=== PATIENT | male | born 1985 | race Caucasian/White ===

== ENCOUNTER → 2018-01-13 12:18 | Outpatient (CLI) | payer OTHER, SELFPAY ==
[2018-01-13 12:40] LABS: Microscopic, Urine URINE MICROSCOPIC (MICROSCOPIC)
[2018-01-13 12:48] LABS: Appearance,Urine CLEAR (Clear); Bilirubin,Urine Negative (Negative); Blood, Urine Negative (Negative); Color,Urine YELLOW (Yellow); Glucose,Urine (UA) Negative (Negative); Ketones,Urine Negative (Negative); Leukocyte Esterase,Urine Negative (Negative); Nitrate,Urine Negative (Negative); PH,Urine 6.5 (5.0-8.5); Protein,Urine Negative (Negative); Specific Gravity, Urine 1.025 (1.005-1.030); Urobilinogen,Urine 0.2 EU/dl (0.2)
[2018-01-13 12:55] LABS: Basophils # 0.1 K/mm3 (0-0.2); Basophils % 0.6 % (0.1-2.0); Eosinophils # 0.2 K/mm3 (0.0-0.4); Eosinophils % 2.7 % (0.1-12.0); Hematocrit 52.5 % (42.0-52.0); Hemoglobin 17.5 g/dL (14.1-18.0); Lymphocytes # 2.6 K/mm3 (0.7-4.5); Lymphocytes % 29.4 % (10-50); Mean Corpuscular HGB Conc 33.3 g/dL (31.8-35.4); Mean Corpuscular Volume 90.1 fl (80-94); Mean Platelet Volume 7.5 fl (7.4-10.4); Monocytes # 0.6 K/mm3 (0.1-1.0); Monocytes % 7.1 % (1.7-9.3); Neutrophils # 5.4 K/mm3 (1.8-7.8); Neutrophils % 60.2 % (37.0-80.0); Platelet Count 279 K/mm3 (142-424); Red Blood Count 5.83 M/mm3 (4.60-6.20); Red Cell Distribution Width 13.5 % (11.5-17.5); White Blood Count 8.9 K/mm3 (4.8-10.8)
[2018-01-13 12:56] LABS: Bacteria,Urine Trace /lpf; Mucus,Urine 1+ /lpf; Squamous Epithelial Cell,Urine Occasional #/hpf (0-5)
[2018-01-13 13:14] LABS: Hemoglobin A1C 5.6 % (0.0-7.0)
[2018-01-13 14:21] LABS: Alanine Aminotransferase 90 U/L (12-78); Albumin Level 4.4 gm/dL (3.4-5.0); Albumin/Globulin Ratio 1.3 (1.1-1.8); Alkaline Phosphatase 76 U/L (46-116); Anion Gap 10.5 mEq/L (5-15); Aspartate Amino Transferase 33 U/L (15-37); Bilirubin,Total 0.8 mg/dL (0.2-1.0); Blood Urea Nitrogen 14 mg/dL (7-18); Calcium 9.3 mg/dL (8.5-10.1); Carbon Dioxide 31 mmol/L (21.0-32.0); Chloride 102 mmol/L (98-107); Chol/HDL Ratio 3.9 (1-3.5); Cholesterol 216 mg/dL (140-200); Creatinine,Serum 1.13 mg/dL (0.70-1.30); Estimated Glomerular Filt Rate 75 ml/min (>60); Free T4 (Free Thyroxine) 0.89 ng/dl (0.76-1.46); GFR (African American) 91 ML/MIN (>60); Globulin 3.4 gm/dl (1.3-3.2); Glucose 104 mg/dL (74-106); HDL Cholesterol 56 mg/dL (27-67); LDL Cholesterol 135 mg/dL (0-130); Potassium 4.5 mmoL/L (3.5-5.1); Prostate Specific Ag Screen 0.8 ng/mL (0.0-4.0); Sodium 139 mmol/L (136-145); Thyroid Stimulating Hormone 2.08 uIU/ml (0.358-3.740); Total Protein,Serum 7.8 gm/dL (6.4-8.2); Triglycerides 125 mg/dL (30-200); VLDL Cholesterol 25 mg/dL (0-40)
[2018-01-16 16:12] LABS: Renin Activity, Plasma 1.493 ng/mL/hr (0.167-5.380)
== END ==
PROVIDERS: Visit Provider Emergency Medicine
DX: I10 Essential (primary) hypertension (principal); E66.9 Obesity, unspecified; K80.10 Calculus of gallbladder with chronic cholecystitis without obstruction
CPT/HCPCS: 36415; 80053; 80061; 81001; 82088; 83036; 84244; 84439; 84443; 85025; G0103

== ENCOUNTER → 2018-01-20 08:00 | Outpatient (CLI) | payer OTHER, SELFPAY ==
[2018-01-27 10:23] LABS: Cortisol,F,ug/L,U 21 ug/L (Undefined)
[2018-01-27 13:25] LABS: Metanephrine, Ur 72 ug/L (Undefined); Normetanephrine, Ur 429 ug/L (Undefined)
[2018-01-27 15:36] LABS: Cortisol,F,ug/24hr,U 29 ug/24 hr (0-50); Metanephrine, U,24hr 101 ug/24 hr (45-290); Normetanephr.,U,24h 601 ug/24 hr (82-500)
[2018-01-28 14:15] LABS: 5-HIAA, Urine 1.9 mg/L (Undefined)
[2018-01-28 15:58] LABS: 5-HIAA, Urine, 24Hr. 2.7 mg/24 hr (0.0-14.9)
== END ==
PROVIDERS: Visit Provider Emergency Medicine
DX: E66.9 Obesity, unspecified (principal); I10 Essential (primary) hypertension; K80.20 Calculus of gallbladder without cholecystitis without obstruction
CPT/HCPCS: 82530; 83497; 83835

== ENCOUNTER → 2018-01-21 07:00 | Outpatient (CLI) | payer OTHER, SELFPAY ==
[2018-01-28 01:07] LABS: Dopamine, Urine 194 ug/L (Undefined); Epinephrine, U, 24hr 6 ug/24 hr (0-20); Epinephrine, Urine 3 ug/L (Undefined); Norepinephrine, Ur 56 ug/L (Undefined); Norepinephrine,U,24h 120 ug/24 hr (0-135); VMA, Urine 2.6 mg/L (Undefined)
[2018-01-28 07:41] LABS: Dopamine, Ur, 24hr 417 ug/24 hr (0-510); VMA, Urine, 24hr 5.6 mg/24 hr (0.0-7.5)
== END ==
PROVIDERS: Visit Provider Emergency Medicine
DX: I10 Essential (primary) hypertension (principal); E66.9 Obesity, unspecified
CPT/HCPCS: 82384; 84585

== ENCOUNTER → 2018-07-28 07:58 | Outpatient (CLI) | payer OTHER, SELFPAY ==
[2018-07-28 09:49] LABS: Alanine Aminotransferase 114 U/L (12-78); Aspartate Amino Transferase 38 U/L (15-37); Chol/HDL Ratio 4.2 (1-3.5); Cholesterol 186 mg/dL (140-200); HDL Cholesterol 44 mg/dL (27-67); LDL Cholesterol 118 mg/dL (0-130); Triglycerides 120 mg/dL (30-200); VLDL Cholesterol 24 mg/dL (0-40)
== END ==
PROVIDERS: Visit Provider Emergency Medicine
DX: E78.5 Hyperlipidemia, unspecified (principal); R74.0 Nonspecific elevation of levels of transaminase and lactic acid dehydrogenase [LDH]
CPT/HCPCS: 36415; 80061; 84450; 84460

== ENCOUNTER → 2019-04-23 14:47 | Outpatient (CLI) | payer OTHER, SELFPAY ==
--- NOTE | 2019-04-23 14:51 | XR_ITS ---
PROCEDURE: XR KUB Patient Age:33Y CLINICAL INDICATION: kidney stone right-sided kidney stone follow-up COMPARISON: CT ABDOMEN PELVIS WO CON from 04/20/2019 FINDINGS: Recent CT of the abdomen demonstrated a right ureteral calculus to the right of the L3/4 level. It just less than [address] Of on today's KUB the same ureteral stone again identified just to the right of the L3/4 disc space. The a the it has not moved significantly since the prior CT and again measures just over 5 mm length plain film.. No additional renal calculi evident obvious obstruction Gas pattern-The bowel gas pattern is unremarkable. Moderate stool at the hepatic flexure and transverse colon. Minimal stool left colon. Phleboliths pelvic basin.... Bones-No acute bony anomalies evident. IMPRESSION: Right ureteral calculus a again noted-located to the right of the L3/4 disc space.. It has not moved appreciably since recent CT abdomen 04/20/2019 Dictated by: Yung Emerson MD 04/25/2019 22:14 Electronically signed by Yung Emerson MD in [place] 04/25/2019 22:14
== END ==
PROVIDERS: PCP Emergency Medicine; Visit Provider Urology
DX: N20.0 Calculus of kidney (principal)
CPT/HCPCS: 74018

== ENCOUNTER → 2019-04-29 08:34 | Outpatient (CLI) | payer OTHER, SELFPAY ==
--- NOTE | 2019-04-29 08:37 | XR_ITS ---
PROCEDURE: XR KUB CLINICAL INDICATION: KIDNEY STONE Flank pain COMPARISON: CT ABDOMEN PELVIS WO CON from 04/20/2019 FINDINGS: There is a 4 mm calcific density inferior to the right L3 transverse process consistent with a ureteral stone as noted on the CT scan of 04/20/2019. otherwise negative. Pelvic calcifications are present on the left and may represent phleboliths IMPRESSION: 4 mm right mid ureteral stone Dictated by: Maciej Best MD 04/29/2019 12:07 Electronically signed by Maciej Best MD in [place] 04/29/2019 12:07
== END ==
PROVIDERS: PCP Emergency Medicine; Visit Provider Urology
DX: N20.0 Calculus of kidney (principal)
CPT/HCPCS: 74018

== ENCOUNTER → 2019-05-14 08:36 | Outpatient (CLI) | payer OTHER, SELFPAY ==
--- NOTE | 2019-05-14 08:41 | XR_ITS ---
PROCEDURE: XR KUB CLINICAL INDICATION: KIDNEY STONE Flank pain, kidney stone follow-up COMPARISON: CT ABDOMEN PELVIS WO CON from 04/20/2019 FINDINGS: There is a 4 mm calcific density on the right between the 3rd and 4th lumbar spine transverse process consistent with a ureteral stone which is not significantly changed. Pelvic phleboliths are present. IMPRESSION: No change right nephrolithiasis Dictated by: Maciej Best MD 05/14/2019 09:10 Electronically signed by Maciej Best MD in [place] 05/14/2019 09:10
== END ==
PROVIDERS: PCP Emergency Medicine; Visit Provider Urology
DX: N20.0 Calculus of kidney (principal)
CPT/HCPCS: 74018

== ENCOUNTER → 2019-05-28 08:47 | Outpatient (CLI) | payer OTHER, SELFPAY ==
--- NOTE | 2019-05-28 08:52 | XR_ITS ---
PROCEDURE: XR KUB CLINICAL INDICATION: kidney stone Follow-up kidney stone COMPARISON: CT ABDOMEN PELVIS WO CON from 04/20/2019 XR KUB from 04/23/2019 XR KUB from 05/14/2019 FINDINGS: There is a 5 mm irregular calcific density lying along the right L3-L4 level consistent with the ureteral stone which is not significantly changed from 05/14/2019. IMPRESSION: No change right mid ureteral Dictated by: Maciej Best MD 05/28/2019 09:03 Electronically signed by Maciej Best MD in [place] 05/28/2019 09:03
== END ==
PROVIDERS: PCP Emergency Medicine; Visit Provider Urology
DX: N20.0 Calculus of kidney (principal)
CPT/HCPCS: 74018

== ENCOUNTER → 2019-06-17 12:46 | Outpatient (CLI) | payer OTHER, SELFPAY ==
--- NOTE | 2019-06-17 12:46 | XR_ITS ---
PROCEDURE: XR KUB CLINICAL INDICATION: kidney stone COMPARISON: XR KUB from 05/28/2019 FINDINGS: There remains a calcific density inferior to the right L3 transverse process measuring 6 mm consistent with a ureteral stone not significantly changed. IMPRESSION: No change right mid ureteral stone Dictated by: Maciej Best MD 06/17/2019 13:05 Electronically signed by Maciej Best MD in [place] 06/17/2019 13:05
== END ==
PROVIDERS: PCP Emergency Medicine; Visit Provider Urology
DX: N20.0 Calculus of kidney (principal); Z96.0 Presence of urogenital implants
CPT/HCPCS: 74018

== ENCOUNTER → 2019-07-23 09:05 | Outpatient (CLI) | payer OTHER, SELFPAY ==
--- NOTE | 2019-07-23 09:12 | XR_ITS ---
PROCEDURE: XR KUB CLINICAL INDICATION: kidney stone COMPARISON: CT ABDOMEN PELVIS WO CON from 04/20/2019 FINDINGS: Gas pattern-The bowel gas pattern is unremarkable. No obvious obstruction. The calcification seen near the L3-4 level on the previous CT scan is not seen. The right renal shadow is somewhat obscured by overlying stool but no calculi are seen and the left kidney is better seen and shows no definite calculi. However the 1 mm calculus seen in the left kidney on the previous CT scan would probably be below resolution on this plain film. There couple of faint pelvic calcifications likely phleboliths. IMPRESSION: No acute findings. Dictated by: Dr. Gerardo Jones MD 07/23/2019 10:[address] Gerardo Jones MD in [place] 07/23/2019 10:44
== END ==
PROVIDERS: Visit Provider Urology
DX: N20.0 Calculus of kidney (principal)
CPT/HCPCS: 74018

== ENCOUNTER → 2019-08-19 08:35 | Outpatient (CLI) | payer OTHER, SELFPAY ==
--- NOTE | 2019-08-19 08:55 | XR_ITS ---
PROCEDURE: XR KUB CLINICAL INDICATION: kidney stones COMPARISON: CT ABDOMEN PELVIS WO CON from 04/20/2019 XR KUB from 04/23/2019 XR KUB from 05/14/2019 XR KUB from 06/17/2019 XR KUB from 07/23/2019 FINDINGS: There is a 4 mm calcific density in the right mid pelvic region which may be due to a distal ureteral calculus. 2 calcifications are present in the left pelvic area consistent with phleboliths. IMPRESSION: Possible right distal ureteral calculus. CT may confirm Dictated by: Maciej Best MD 08/19/2019 17:06 Electronically signed by Maciej Best MD in [place] 08/19/2019 17:06
== END ==
PROVIDERS: PCP Emergency Medicine; Visit Provider Urology
DX: N20.0 Calculus of kidney (principal)
CPT/HCPCS: 74018

== ENCOUNTER → 2019-09-06 15:04 | Outpatient (CLI) | payer OTHER, SELFPAY ==
--- NOTE | 2019-09-06 15:06 | XR_ITS ---
PROCEDURE: XR KUB CLINICAL INDICATION: kidney stone COMPARISON: CT ABDOMEN PELVIS WO CON from 04/20/2019 XR KUB from 04/29/2019 XR KUB from 08/19/2019 FINDINGS: There remains an irregular calcific density at the mid the lower pelvic region on right at 4-5 mm consistent with a distal ureteral stone. IMPRESSION: No change right distal ureteral stone Dictated by: Maciej Best MD 09/07/2019 15:00 Electronically signed by Maciej Best MD in [place] 09/07/2019 15:00
== END ==
PROVIDERS: PCP Family Medicine; Visit Provider Urology
DX: N20.0 Calculus of kidney (principal)
CPT/HCPCS: 74018

== ENCOUNTER 2019-09-13 19:28 | Emergency (ER) | payer OTHER, SELFPAY ==
[2019-09-13 19:50] VITALS: BP 138/78; PULSE 68; RESP 20; TEMP 36.5; O2SAT 98; BMI 27.8
--- NOTE | 2019-09-13 20:00 | HMH.EDUTC ---
[facility] [place] Clinical Impression: Renal colic on right side Disposition: Home, Self-Care Condition on Discharge: Good Instructions: Kidney Stones -- Adult Additional Instructions: Follow up with your urologist tomorrow as discussed. Take the medications that have been prescribed by your doctor. GO TO THE ER FOR ANY WORSENING SYMPTOMS OR CONCERNS Referrals: Denis Garza MD [Primary Care Provider] - Time of Disposition: 20:13 Medical Decision Making - Medical Records Medical records reviewed: No: I reviewed the patient's medical records. - Romero Inquiry Pt receiving controlled substance: No Vital Signs: 09/13/19 19:50 09/13/19 20:08 Temperature 97.7 F 97.7 F Temperature Source Oral Pulse Rate 68 Pulse Rate [Right Brachial] 68 Respiratory Rate 20 20 Blood Pressure 138/78 Blood Pressure [Right Arm] 138/78 Blood Pressure Mean [Right Arm] 98 Blood Pressure Source [Right Arm] Automatic Cuff Blood Pressure Position [Right Arm] Sitting 02 Sat by Pulse Oximetry 98 Oxygen Delivery Method Room Air - Lab Data Lab results reviewed: Yes: I reviewed the patient's lab results. Orders (Tests/Meds): ED MEDICATIONS Discontinued Medications Generic Name Dose Route Start Last Admin Trade Name Freq PRN Reason Stop Dose Admin Ketorolac Tromethamine 60 mg 09/13/19 20:00 09/13/19 20:06 Toradol 60mg/2ml Vial IM 09/13/19 20:01 60 mg ONCE ONE Administration Medical Decision Narrative: He refused to be transferred to the er for further evaluation. He is aware that if the kidney stone is causing hydronephrosis then it could hurt his kidney. [facility] [place] - General Stated complaint: pain in lower stomach and back Time Seen by Provider: 09/13/19 20:01 Mode of Arrival: Ambulatory Source of Information: Patient Limitations: No Limitations Description of Symptoms (Recalled from Triage Doc. by RN): PATIENT C/O INCREASE IN LOWER BACK PAIN, HE DOES CURRENTLY HAVE A KIDNEY STONE PER PATIENT REPORT HEENT Symptoms (Recalled from RN notes): No Resp Symptoms (Recalled from RN notes): No Skin Symptoms (Recalled from RN notes): No MS Symptoms (Recalled from RN notes): No Functional Status (Recalled from RN notes): WNL - History of Present Illness Provider Complaint: He c/o left groin pain and left flank pain for the past 3 hours. He knows that he has a kidney stone hung in his right ureter. He is being followed by urology for this. He came in today b/c of the increased pain, but now the pain has eased off almost completley. - Related Data Home Medications Medication Instructions Recorded Confirmed lisinopriL [Lisinopril 10mg Tab] 10 mg PO DAILY 02/15/19 09/13/19 Allergies Allergy/AdvReac Type Severity Reaction Status Date / Time No Known Allergies Allergy Unverified 09/06/19 15:44 - Worker's Comp Is this a Worker's Comp case?: No [facility] History - Hepatitis A Screen Drug use history?: No High risk sexual behaviors?: No History of sexually transmitted infection?: No Currently employed?: No Childcare worker?: No Do you have indoor plumbing?: Yes Do you have electricity?: Yes Attestation statement:: This patient has been screened for Hepatitis A risk factors. I have reviewed the patient's past medical history: Yes Medical History: Reports:: Hypertension, Kidney Stones Laterality Cases: Bilateral: Tonsillectomy Other Surgeries: Yes: No Previous Surgery Amputation: No Fractures: No Comment: vasectomy - Social History Smoking Status: Current every day smoker Tobacco Type: cigarettes # Packs/Day (cigarettes): 1 Alcohol Intake: never Alcohol Intake Frequency:: holidays/special occasions only Substance Use Type: denies use Occupational Status: other Housing: house Household Members: family Family Hx:: No significant family history ROS Obtained: Yes All systems reviewed & no additional complaints - Constitutional Constitutional: Denies chills, Denies fever(s)
[2019-09-13 20:08] VITALS: BP 138/78; PULSE 68; RESP 20; TEMP 36.5; O2SAT 98
== END 2019-09-13 20:17 | disposition home or self-care (01) ==
PROVIDERS: Emergency Provider Nurse Practitioner Family; PCP Family Medicine
DX: N20.1 Calculus of ureter (principal); N23 Unspecified renal colic; I10 Essential (primary) hypertension; Z87.442 Personal history of urinary calculi; Z90.09 Acquired absence of other part of head and neck; F17.210 Nicotine dependence, cigarettes, uncomplicated
CPT/HCPCS: 96372; 99201

== ENCOUNTER → 2019-09-17 11:32 | Outpatient (CLI) | payer OTHER, SELFPAY ==
[2019-09-17 15:41] LABS: Coronavirus 19 IgG Antibody Negative (Negative); Coronavirus 19 IgM Antibody Negative (Negative)
== END ==
PROVIDERS: Visit Provider Urology
DX: Z01.818 Encounter for other preprocedural examination (principal); N20.0 Calculus of kidney
CPT/HCPCS: 36415; 86328

== ENCOUNTER 2020-03-12 10:52 | Emergency (ER) | payer MEDICAID, SELFPAY ==
[2020-03-12 11:30] VITALS: BP 135/79; PULSE 70; RESP 18; TEMP 36.8; O2SAT 98; BMI 34.8
--- NOTE | 2020-03-12 11:48 | HMH.EDUTC ---
[facility] [place] Clinical Impression: Strep throat Otitis media Qualifiers: Otitis media type: unspecified Laterality: right Qualified Code(s): H66.91 - Otitis media, unspecified, right ear Disposition: Home, Self-Care Condition on Discharge: Good Instructions: DI for Strep Throat, Strep Throat Additional Instructions: *Nasal saline and bulb syringe or nose candace to remove nasal drainage and help with nasal congestion. Hard to eat, drink, or sleep with nasal congestion so important to keep nose cleaned out. *Monitor Temp, Over the counter Motrin or Tylenol as directed/as needed Tylenol every 4 hours and Motrin every 6 hours (as long as your family doctor has told you that you can take it) for fever or pain. and straight to ER if unable to lower temp less than 101.0 after medication given *Warm salt water gargles may help to soothe the throat *Throat Lozenges *Warm fluids like tea with honey may help to soothe the throat *Sleep elevated *Humidifier/Vaporizer If you did not take Penicillin shot or was unable to, start taking antibiotic immediately and make sure that you take it for the FULL length of time although you should start to feel better in 24-48 hours *change toothbrush and toothpaste 24-48 hours after starting to take antibiotics so you do not reinfect yourself Monitor Temp. Tylenol and/or Ibuprofen as needed. ER if fever is no less than 101 despite alternating Tylenol and Ibuprofen * Encourage fluids, water, Gatorade, powerade, pedialyte if infant/toddler/or child *Cold fluids, popsicles and ice cream may feel good on his throat Follow up IMMEDIATELY for new or worsening symptoms or no Noticeable improvement over the next 48-72 hours. 911 for difficulty breathing or swallowing Prescriptions: Fluticasone Propionate [Flonase 50mcg nasal spray 16gm] 1 spr NS DAILY #1 bottle Transmission Status: Pending to [facility] # Cefdinir [Omnicef 300mg Capsule] 300 mg PO BID #20 cap Transmission Status: Pending to [facility] # Referrals: Denis Garza MD [Primary Care Provider] - As needed Time of Disposition: 11:56 Medical Decision Making - Romero Inquiry Pt receiving controlled substance: No Romero was queried for this patient: No Vital Signs: 03/12/20 11:30 Temperature 98.2 F Temperature Source Oral Pulse Rate [Right Brachial] 70 Respiratory Rate 18 Blood Pressure [Right Arm] 135/79 Blood Pressure Mean [Right Arm] 97 Blood Pressure Source [Right Arm] Automatic Cuff Blood Pressure Position [Right Arm] Sitting 02 Sat by Pulse Oximetry 98 Oxygen Delivery Method Room Air - Lab Data Lab results reviewed: Yes: I reviewed the patient's lab results. [facility] [place] HPI - General Stated complaint: Sore throat Time Seen by Provider: 03/12/20 11:48 Mode of Arrival: Ambulatory Source of Information: Patient Limitations: No Limitations Description of Symptoms (Recalled from Triage Doc. by RN): PATIENT C/O SORE THROAT AND RIGHT EAR PAIN HEENT Symptoms (Recalled from RN notes): Yes Resp Symptoms (Recalled from RN notes): No Skin Symptoms (Recalled from RN notes): No MS Symptoms (Recalled from RN notes): No Functional Status (Recalled from RN notes): WNL - History of Present Illness Provider Complaint: Patient states that he has been having sore throat and pain in his right ear State that he took some left over antiboitics but hasnt cleared it up States that today he was still having pain in his ear and throat so he came in to get checked - Related Data Home Medications Medication Instructions Recorded Confirmed lisinopriL [Lisinopril 10mg Tab] 10 mg PO DAILY 02/15/19 09/16/19 Fluoxetine HCl 10 mg PO DAILY 09/17/19 09/17/19 Hydrocodone/Acetaminophen 1 each PO DAILY 09/17/19 09/17/19 [Hydrocodon-Acetaminoph 7.5-325] Previous Rx's Medication Instructions Recorded Cefdinir [Omnicef 300mg Capsule] 300 mg PO BID #20 cap 03/12/20 Fluticasone Propionate [Flonase 1 spr NS D
[2020-03-12 11:59] VITALS: BP 135/79; PULSE 70; RESP 18; TEMP 36.8; O2SAT 98
[2020-03-12 20:01] LABS: UTC Strep Screen (Rapid) Positive (Negative)
== END 2020-03-12 12:00 | disposition home or self-care (01) ==
PROVIDERS: Emergency Provider Nurse Practitioner; PCP Family Medicine
DX: J02.0 Streptococcal pharyngitis (principal); H66.91 Otitis media, unspecified, right ear; I10 Essential (primary) hypertension; Z87.442 Personal history of urinary calculi; F17.210 Nicotine dependence, cigarettes, uncomplicated
CPT/HCPCS: 87880; 99202; G0463

== ENCOUNTER 2021-03-10 12:30 | Emergency (ER) | payer MEDICAID, SELFPAY ==
[2021-03-10 14:20] VITALS: BP 141/92; PULSE 87; RESP 21; TEMP 37.8; O2SAT 97; BMI 37.0
--- NOTE | 2021-03-10 14:46 | HMH.EDUTC ---
[facility] [place] Disposition Clinical Impression: Otitis media Qualifiers: Otitis media type: unspecified Laterality: bilateral Qualified Code(s): H66.93 - Otitis media, unspecified, bilateral Disposition: Home, Self-Care Condition on Discharge: Good Instructions: Middle Ear Infection, Middle Ear Infections (Alternative Therapy), Amoxicillin, Methylprednisolone Additional Instructions: *Monitor Temp, Over the counter Motrin or Tylenol as directed/as needed Tylenol every 4 hours and Motrin every 6 hours (as long as your family doctor has told you that you can take it) for fever or pain. and straight to ER if unable to lower temp less than 101.0 after medication given *Warm salt water gargles may help to soothe the throat *Throat Lozenges *Warm fluids like tea with honey may help to soothe the throat *Sleep elevated *Humidifier/Vaporizer Your throat swab was sent for culture. Those results are typically sent to your primary care. Be sure to follow up in 2-3 days with your family doctor/primary care physician if no improvement so they can review those result and treat if necessary. If you don?t have a primary care doctor, I recommend you get one but in the mean time, you will have to return to a walk in clinic Follow up IMMEDIATELY for new or worsening symptoms or no Noticeable improvement over the next 48-72 hours. 911 for difficulty breathing or swallowing You were tested for today for COVID19 your test result should be back in the next 24-48 hours, you may check your results on the [facility] My Health Portal if you have trouble logging on you may call You was given a handout with instructions for Self Quarantine and Self isolation for while you wait on test results and what to do if they are positive If you are positive the Health Dept will be contacting you also Make sure to take your Vitamins Vit. C Vit D and Zinc if you can take them Prescriptions: Amoxicillin [Amoxicillin 875MG Tab] 875 mg PO Q12H #20 tab Transmission Status: Pending to [facility] # methylPREDNISolone [Medrol 4mg tab] 4 mg PO DIRECTED #21 tab Transmission Status: Pending to [facility] # Referrals: Denis Garza MD [Primary Care Provider] - As needed Forms: Work/School Release Time of Disposition: 15:05 Medical Decision Making - Romero Inquiry Pt receiving controlled substance: No Romero was queried for this patient: No Vital Signs: 03/10/21 14:20 Temperature 100.0 F H Temperature Source Oral Pulse Rate [Right Brachial] 87 Respiratory Rate 21 Blood Pressure [Right Arm] 141/92 H Blood Pressure Mean [Right Arm] 108 Blood Pressure Source [Right Arm] Automatic Cuff Blood Pressure Position [Right Arm] Sitting 02 Sat by Pulse Oximetry 97 Oxygen Delivery Method Room Air - Lab Data Lab results reviewed: Yes: I reviewed the patient's lab results. Lab Results 03/10/21 14:34: Influenza Type A Ag Negative, Influenza Type B Ag Negative Orders (Tests/Meds): ORDERS Category Date Time Status Covid-19 Nasal PCR ([facility]) Routine Lab 03/10/21 14:[address] [facility] [place] HPI - General Stated complaint: fever, body aches, ear pain Time Seen by Provider: 03/10/21 14:46 Mode of Arrival: Ambulatory Source of Information: Patient Limitations: No Limitations Description of Symptoms (Recalled from Triage Doc. by RN): PATIENT C/O FEVER, LEFT EAR ACHE, AND BODY ACHES X 2 DAYS HEENT Symptoms (Recalled from RN notes): Yes Resp Symptoms (Recalled from RN notes): No Skin Symptoms (Recalled from RN notes): No MS Symptoms (Recalled from RN notes): No Functional Status (Recalled from RN notes): WNL - History of Present Illness Provider Complaint: Patient state that he has been having body aches, fever pain in left ear State that he feels like his ears are full and feels a little dizzy at times if he turns his head too quickly so he came in to get checked when today he was still not feeling well - Related Data Home Medications Medi
[2021-03-10 14:52] LABS: UTC Influenza A Antigen Negative (Negative); UTC Influenza B Antigen Negative (Negative)
[2021-03-10 15:03] LABS: UTC Strep Screen (Rapid) Negative (Negative)
[2021-03-10 15:15] VITALS: BP 141/92; PULSE 87; RESP 21; TEMP 37.8; O2SAT 97
== END 2021-03-10 15:17 | disposition home or self-care (01) ==
PROVIDERS: Emergency Provider Nurse Practitioner; PCP Family Medicine
DX: H66.93 Otitis media, unspecified, bilateral (principal); I10 Essential (primary) hypertension; R42 Dizziness and giddiness
CPT/HCPCS: 87804; 87880; 99203; C9803; G0463; U0003; U0005

== ENCOUNTER 2021-07-01 11:15 | Emergency (ER) | payer MEDICAID, SELFPAY ==
[2021-07-01 11:20] VITALS: BP 137/96; PULSE 135; RESP 18; TEMP 37.9; O2SAT 96; BMI 37.3
[2021-07-01 11:41] LABS: UTC Influenza A Antigen Positive (Negative); UTC Influenza B Antigen Negative (Negative)
--- NOTE | 2021-07-01 11:43 | HMH.EDUTC ---
[facility] [place] Clinical Impression: Influenza A Disposition: Home, Self-Care Condition on Discharge: Good Instructions: DI for Influenza -- Adult Additional Instructions: No sign of a bacterial infection. Likely viral. Viruses can take 7-14 days to run their course. Nasal saline and bulb syringe or nose Brunilda to remove nasal drainage to help with nasal congestion. Hard to eat, drink, sleep with nasal congestion so important to keep this cleaned out. Monitor temp. Tylenol or Motrin as needed for pain or fever Encourage fluids, water, Gatorade, Powerade, Pedialyte if /toddler/child Warm salt water gargles Warm fluids Sore throat lozenges Sleep elevated Humidifier/vaporizer Follow-up immediately for new or worsening symptoms or no noticeable improvement over the next 48-72 hours. Prescriptions: Oseltamivir Phosphate [Tamiflu 75mg Capsule] 75 mg PO BID #10 cap Prescription Printed Referrals: Denis Garza MD [Primary Care Provider] - Forms: Work/School Release Time of Disposition: 11:48 Medical Decision Making - Romero Inquiry Pt receiving controlled substance: No Vital Signs: 07/01/21 11:20 Temperature 100.2 F H Temperature Source Oral Pulse Rate [Right Brachial] 135 H Respiratory Rate 18 Blood Pressure [Right Arm] 137/96 H Blood Pressure Mean [Right Arm] 109 Blood Pressure Source [Right Arm] Automatic Cuff Blood Pressure Position [Right Arm] Sitting 02 Sat by Pulse Oximetry 96 Oxygen Delivery Method Room Air - Lab Data Lab Results 07/01/21 11:31: Influenza Type A Ag Positive A, Influenza Type B Ag Negative Orders (Tests/Meds): ORDERS Category Date Time Status Strep Scrn Group A (Rapid) Stat Lab 07/01/21 11:28 Received [facility] [place] HPI - General Chief complaint: Urgent [facility] Stated complaint: congestion, h/a, fever Time Seen by Provider: 07/01/21 11:43 Mode of Arrival: Ambulatory Source of Information: Patient Limitations: No Limitations Description of Symptoms (Recalled from Triage Doc. by RN): PATIENT C/O HEADACHE, FEVER, COUGH, BODY ACHES, CHILLS, SORE THROAT, AND CONGESTION SINCE YESTERDAY HEENT Symptoms (Recalled from RN notes): Yes Resp Symptoms (Recalled from RN notes): Yes Skin Symptoms (Recalled from RN notes): No MS Symptoms (Recalled from RN notes): No Functional Status (Recalled from RN notes): WNL - History of Present Illness Provider Complaint: 35 YR OLD MALE C/O HEADACHE, FEVER, COUGH, BODY ACHES, CHILLS, SORE THROAT, AND CONGESTION SINCE YESTERDAY, WAS EXPOSED TO FLU - Related Data Home Medications Medication Instructions Recorded Confirmed lisinopriL [Lisinopril 10mg Tab] 10 mg PO DAILY 02/15/19 09/16/19 Fluoxetine HCl 10 mg PO DAILY 09/17/19 09/17/19 Hydrocodone/Acetaminophen 1 each PO DAILY 09/17/19 09/17/19 [Hydrocodon-Acetaminoph 7.5-325] Previous Rx's Medication Instructions Recorded Cefdinir [Omnicef 300mg Capsule] 300 mg PO BID #20 cap 03/12/20 Fluticasone Propionate [Flonase 1 spr NS DAILY #1 bottle 03/12/20 50mcg nasal spray 16gm] Amoxicillin [Amoxicillin 875MG 875 mg PO Q12H #20 tab 03/10/21 Tab] methylPREDNISolone [Medrol 4mg 4 mg PO DIRECTED #21 tab 03/10/21 tab] Oseltamivir Phosphate [Tamiflu 75 mg PO BID #10 cap 07/01/21 75mg Capsule] Allergies Allergy/AdvReac Type Severity Reaction Status Date / Time No Known Allergies Allergy Verified 09/16/19 10:35 - Worker's Comp Is this a Worker's Comp case?: No [facility] History - Hepatitis A Screen Attestation statement:: This patient has been screened for Hepatitis A risk factors. I have reviewed the patient's past medical history: Yes Medical History: Reports:: Hypertension, Kidney Stones Denies:: Cancer, Diabetes Mellitus Type 1, Diabetes Mellitus Type 2, Internal Pacemaker, MRSA Laterality Cases: Bilateral: Tonsillectomy Other Surgeries: Yes: No Previous Surgery. No: Pacemaker Amputation: No Fractures: No Comment: vas
[2021-07-01 11:46] VITALS: BP 137/96; PULSE 135; RESP 18; TEMP 37.9; O2SAT 96
[2021-07-01 12:25] LABS: Strep Scrn Group A (Rapid) Negative (Negative)
== END 2021-07-01 11:54 | disposition home or self-care (01) ==
PROVIDERS: Emergency Provider Nurse Practitioner Family; PCP Family Medicine
DX: J10.1 Influenza due to other identified influenza virus with other respiratory manifestations (principal)
CPT/HCPCS: 87430; 87804; 99212; G0463

== ENCOUNTER 2022-01-31 10:16 | Emergency (ER) | payer BC, SELFPAY ==
[2022-01-31 10:50] VITALS: BP 131/86; PULSE 89; RESP 18; TEMP 36.8; O2SAT 98; BMI 37.0
[2022-01-31 10:56] LABS: UTC Strep Screen (Rapid) Negative (Negative)
--- NOTE | 2022-01-31 11:00 | EXP.UTC ---
Discharge Plan Disposition Patient Disposition: Home, Self-Care Condition: Good Prescriptions Prescriptions: New benzonatate 100 mg capsule 100 mg PO TID PRN (Reason: cough) Qty: 30 0RF methylprednisolone [Medrol (Teodoro)] 4 mg tablets,dose pack See Rx Instructions .Route .COMPLEX 6 Days Qty: 21 0RF Rx Instructions: taper pack; cefdinir 300 mg capsule 300 mg PO BID Qty: 20 0RF Referrals Follow up/Referrals: Denis Garza MD [Primary Care Provider] - See instructions Activity Restrictions/Add. Instructions Additional Instructions/Restrictions: *Monitor Temp, Over the counter Motrin or Tylenol as directed/as needed Tylenol every 4 hours and Motrin every 6 hours (as long as your family doctor has told you that you can take it) for fever or pain. and straight to ER if unable to lower temp less than 101.0 after medication given *Warm salt water gargles may help to soothe the throat *Throat Lozenges? *Warm fluids like tea with honey may help to soothe the throat? *Sleep elevated *Humidifier/Vaporizer Your throat swab was sent for culture. Those results are typically sent to your primary care. Be sure to follow up in 2-3 days with your family doctor/primary care physician if no improvement so they can review those result and treat if necessary. If you don?t have a primary care doctor, I recommend you get one but in the mean time, you will have to return to a walk in clinic Follow up IMMEDIATELY for new or worsening symptoms or no Noticeable improvement over the next 48-72 hours. 911 for difficulty breathing or swallowing Clinical Impressions Clinical Impression: Sinusitis, Bronchitis Stand Alone Forms Stand Alone Forms: Work/School Release Instructions Patient Instructions: DI for Sinusitis, Acute Bronchitis Discharge ED Provider: Alexandria Turner [facility] HPI General Stated complaint: Sore throat, cough, drainage, ear pain Time Seen by Provider: 01/31/22 11:00 Description of Symptoms (Recalled from Triage Doc. by RN): Patient state that he has been having ear pain and pressure, sore throat, cough and sinus congestion and pressure States that he has continued to get worse since Friday States that he has also had a bad cough and at time he will cough up some mucous Related Data Previous Rx's Medication Instructions Recorded benzonatate 100 mg capsule 100 mg PO TID PRN cough #30 caps 01/31/22 cefdinir 300 mg capsule 300 mg PO BID #20 caps 01/31/22 methylprednisolone 4 mg tablets in See Rx Instructions .Route 01/31/22 a dose pack (Medrol (Teodoro)) .COMPLEX 6 days #21 tabs Allergies Allergy/AdvReac Type Severity Reaction Status Date / Time No Known Allergies Allergy Verified 09/16/19 10:35 [facility] Disclaimer: The information contained in this section may have been updated after the patient was seen, as this information can be updated by other users. Medical History (Updated 01/31/22 @ 11:08 by Alexandria Turner APRN) Hypertension Social History Smoking Status: Current every day smoker tobacco type: cigarettes packs per day: 1 alcohol intake: never substance use type: denies use current occupational status: other Travel in the last 8 weeks: None household members: family housing: house current occupation: [employer] caffeine: No ROS Obtained: Yes All systems reviewed & no additional complaints except as documented and Yes Systems reviewed as appropriate & no additional complaints except as documented Constitutional Constitutional: Reports system reviewed and no additional complaints, except as documented and Reports as per HPI ENT Ears, Nose, Mouth, and Throat: Reports system reviewed and no additional complaints, except as documented, Reports as per HPI, Reports otalgia, Reports sinus pain, Reports sinus pressure and Reports sore throat Cardiovascular Cardiovascular: Reports system reviewed and no additional complaints, except as documented an
[2022-01-31 11:06] VITALS: BP 131/86; PULSE 89; RESP 18; TEMP 36.8; O2SAT 98
[2022-01-31 11:16] LABS: Influenza A, PCR Not Detected (NotDetected); Influenza B, PCR Not Detected (NotDetected)
[2022-01-31 12:12] LABS: Coronavirus 19, PCR Detected (NotDetected)
--- NOTE | 2022-01-31 12:32 | PC.NURSE ---
Pt called for results of test, verified and pt is positive
== END 2022-01-31 11:14 | disposition home or self-care (01) ==
PROVIDERS: Emergency Provider Nurse Practitioner; PCP Family Medicine
DX: J40 Bronchitis, not specified as acute or chronic (principal); F32.9 Major depressive disorder, single episode, unspecified
CPT/HCPCS: 87880; 99212; C9803; G0463; U0003; U0005

== ENCOUNTER 2025-01-21 10:37 | Outpatient (CLI) | payer BC, SELFPAY ==
[2025-01-21 16:18] LABS: Alanine Aminotransferase 61 U/L (12-78); Albumin Level 5.1 g/dl (3.5-5.0); Albumin/Globulin Ratio 2.1 (1.1-1.8); Alkaline Phosphatase 57 U/L (38-126); Anion Gap 11.7 mEq/L (5-15); Aspartate Amino Transferase 42 U/L (17-59); Bilirubin,Total 0.9 mg/dl (0.2-1.3); Blood Urea Nitrogen 12 mg/dl (9-20); Calcium 9.4 mg/dl (8.4-10.2); Carbon Dioxide 28 mmol/L (22.0-30.0); Chloride 101 mmol/L (98-107); Cholesterol 170 mg/dl (140-200); Creatinine,Serum 0.90 mg/dl (0.66-1.25); Estimated Glomerular Filt Rate 94 ml/min (>60); GFR (African American) 114 ML/MIN (>60); Globulin 2.4 g/dL (1.3-3.2); Glucose 74 mg/dl (74-100); HDL Cholesterol 50 mg/dl (40-60); Magnesium 2.0 mg/dl (1.6-2.3); Potassium 4.7 mmoL/L (3.5-5.1); Sodium 136 mmol/L (136-145); Total Protein,Serum 7.5 g/dl (6.3-8.2); Triglycerides 56 mg/dl (30-150)
[2025-01-21 16:46] LABS: Thyroid Stimulating Hormone 3.78 uIU/mL (0.465-4.68)
[2025-01-22 03:36] LABS: PSA, Free 0.20 ng/mL; Testosterone,Total 362 ng/dL (264-916)
--- OUTSIDE RECORDS SUMMARY | 2025-01-24 10:59 | XMS_ITS | Data Portability ---
Author Organization SHEELA PARAM Piña [facility] Address [address] [place] [address] Care Team Providers Care Disaster Recovery Analyst Name Role Phone KUSUM MORALES Primary Care Provider Assessment Encounter Date Assessment Date Assessment LastModified by Organization Details LastModified Time 04/24/2017 04/24/2017 The patient and I had a long discussion in regard to vasectomy. The patient understands he is not safe for unprotected intercourse prior to viewing two semen specimens after vasectomy showing no sperm. He understands that this will be an outpatient procedure. He understands that there is a possibility of recanalization of the vas deferens creating fertility. He also understands that he should use ice, elevation, and inactivity for two days following the vasectomy; no intercourse for 2 weeks. He understands complication of: 1) swelling in the scrotal area and the testicles, 2) bleeding, possibly requiring hospitalization and surgical drainage, 3) loss of a testicle, 4) infection, and 5) pain. He understands long-term complications including: Possible recanalization of the vas producing fertility or chronic pain whether it is minor or significant, even requiring surgical procedures including orchiectomy. He understands that although this is a very effective procedure for sterilization that it is not 100% effective. He was instructed to be inactive for 48 hours using ice, elevation, analgesics, and antibiotics as prescribed. He understands the procedure employs sutures, clips, and cautery. [email or web address] Not available 04/30/2017 12:30:31 05/23/2017 05/23/2017 Vasectomy completed without complications. Patient educated on procedure. Discussed follow up and orders indicated below: Scrotal support with tight underwear or jockstrap, ice pack as needed, nonstrenuous activity for 2-3 days, initial semen analysis in 6 weeks [email or web address] Not available 06/01/2017 21:15:22 10/28/2019 10/28/2019 We discussed the diagnosis of spermatocele and potential treatment options including observation versus spermatocelectomy. It causes him no discomfort at this time he will observe. We discussed kidney stone prevention. [email or web address] Not available 10/29/2019 19:39:34 Plan of Treatment Reminders Order Date Submit Date Provider Last Modified By Organization Details Last Modified Time Details Appointments None recorded. Lab urinalysis , dipstick 2019 020 [email or web address] 14 [facility] With [facility], [address], [address], [place], [address], 0 19:39:35 Referral None recorded. Procedures None recorded. Surgeries vasectomy (SURG) 2017 018 [email or web address] 7 [facility], [address], [address], [place], [address], 8 14:14:01 Imaging None recorded. Medication Orders Ridott 7.5 mg-325 mg tablet 2017 018 [email or web address] Not available 0 17:00:25 Patient TargetsNo targets recorded. Patient Instructions Encounter Date Encounter Id Patient Instructions Last Modified By Organization Details Last Modified Time 04/24/2017 [id number] healthy together [email or web address] Not availa ble 04/30/2017 12:30:35 learning about high blood pressure [email or web address] Not available 04/30/2017 12:30:35 10/28/2019 [id number] kidney stone: care instructions [email or web address] Not available 10/29/2019 19:39:35 learning about diet for kidney stone prevention Not available 10/29/2019 19:39:35 spermatocele: care instructions [email or web address] Not available 10/29/2019 19:39:35 Reason for Referral None Reported. Results Created Date Observation Date Name Description Value Unit Range Abnormal Flag Note LastModifiedBy Organization Detail LastModifiedTime 10/28/19 20 10/28/2019 urina lysis , dipst ick Unknown Analyte Yellow Not Available [facility] With [address], [place], [address], 10/28/2019 17:04:00 10/28/19 20 10/28/2019 urina lysis , dipst ick Unknown Analyte Clear Not Available [facility] With [address], [place], [address], 10/28/2019 17:04:00 10/28/19 20 10/28/2019 urina lysis , dipst ick Unknown Analyte 1.025 Not Available [address], [place], [address], 10/28/2019 17:04:00 10/28/19 20 10/28/2019 urina lysis , dipst ick Unknown Analyte 1.003 - 1.035 Not Available [place] [address], [place], [address], 10/28/2019 17:04:00 10/28/19 20 10/28/2019 urina lysis , dipst ick Unknown Analyte 5.0 Not Available [address], [place], [address], 10/28/2019 17:04:00 10/28/19 20 10/28/2019 urina lysis , dipst ick Unknown Analyte 5.0 - 8.0 Not Available [place] [address], [place], [address], 10/28/2019 17:04:00 10/28/19 20 10/28/2019 urina lysis , dipst ick Unknown Analyte Negati ve Not Available [place] [address], [place], [address], 10/28/2019 17:04:00 10/28/19 20 10/28/2019 urina lysis , dipst ick Unknown Analyte Negati ve Not Available [facility] With [address], [place], [address], 10/28/2019 17:04:00 10/28/19 20 10/28/2019 urina lysis , dipst ick Unknown Analyte Negati ve Not Available [facility] With [address], [place], [address], 10/28/2019 17:04:00 10/28/19 20 10/28/2019 urina lysis , dipst ick Unknown Analyte Negati ve Not Available [facility] With [address], [place], [address], 10/28/2019 17:04:00 10/28/19 20 10/28/2019 urina lysis , dipst ick Unknown Analyte Negati ve Not Available [facility] With [place] [address], [place], [address], 10/28/2019 17:04:00 10/28/19 20 10/28/2019 urina lysis , dipst ick Unknown Analyte Negati ve - Trace Not Available [facility] With [address], [place], [address], 10/28/2019 17:04:00 10/28/19 20 10/28/2019 urina lysis , dipst ick Unknown Analyte Normal Not Available [facility] With [place] [address], [place], [address], 10/28/2019 17:04:00 10/28/19 20 10/28/2019 urina lysis , dipst ick Unknown Analyte Normal Not Available [facility] With [address], [place], [address], 10/28/2019 17:04:00 10/28/19 20 10/28/2019 urina lysis , dipst ick Unknown Analyte Negati ve Not Available [facility] With [address], [place], [address], 10/28/2019 17:04:00 10/28/19 20 10/28/2019 urina lysis , dipst ick Unknown Analyte Negati ve Not Available [facility] With [address], [place], [address], 10/28/2019 17:04:00 10/28/19 20 10/28/2019 urina lysis , dipst ick Unknown Analyte Normal Not Available [facility] With [address], [place], [address], 10/28/2019 17:04:00 10/28/19 20 10/28/2019 urina lysis , dipst ick Unknown Analyte Normal - 1mg/dl Not Available [facility] With [address], [place], [address], 10/28/2019 17:04:00 10/28/19 20 10/28/2019 urina lysis , dipst ick Unknown Analyte Negati ve Not Available [facility] With [address], [place], [address], 10/28/2019 17:04:00 10/28/19 20 10/28/2019 urina lysis , dipst ick Unknown Analyte Negati ve Not Available [facility] With [address], [place], [address], 10/28/2019 17:04:00 10/28/19 20 10/28/2019 urina lysis , dipst ick Unknown Analyte Negati ve Not Available [facility] With [address], [place], [address], 10/28/2019 17:04:00 10/28/19 20 10/28/2019 urina lysis , dipst ick Unknown Analyte Negati ve Not Available [facility] With [address], [place], [address], 10/28/2019 17:04:00 10/28/19 20 10/28/2019 urina lysis , dipst ick Unknown Analyte Clean Catch Not Available [facility] With [address], [place], [address], 10/28/2019 17:04:00 10/28/19 20 10/28/2019 urina lysis , dipst ick Unknown Analyte Automa jordan Not Available [facility] With [address], [place], [address], 10/28/2019 17:04:00 Result Notes None recorded. Procedures Surgical History Date Name Laterality Status Provider Name and Address Organization Details Recorded Time 8 Vasectomy completed GARY BANG MD [address] [place] [address], [address], [facility] 06/01/2017 21:15:09 [facility] 14:17:36 Imaging Results None recorded. Procedure Notes None recorded. Medical Equipment None Reported. Allergies No known drug allergies Medications Name Sig Start Date Stop Date Status Note LastModified by Organization Details LastModified Time sildenafil 25 mg tablet Take 1 tablet every day by oral route. active Not Available Not Available No t Available Prozac 20 mg capsule Take 1 capsule every day by oral route. active Not Available Not Available No t Available Ridott 7.5 mg-325 mg tablet Take 1 tablet every 4-6 hours by oral route. 10/27 completed Not Available Not Available Not Available Vitals Date Recorded Body height Body mass index (BMI) Body weight Systolic And Diastolic Provider Name and Address Organization Details Last Updated DateTime 04/24/2017 180.34 cm 34.9 kg/m2 866822.09 g 124/78 mm[Hg] [facility] 04/24/2017 14:16:27 Date Recorded Body height Body mass index (BMI) Body weight Provider Name and Address Organization Details Last Updated DateTime 10/28/2019 180.34 cm 34.9 kg/m2 027175.09 g [facility] 10/28/2019 17:00:20 Social History Question Answer Notes LastModified by [employer] Details LastModified Time Tobacco Smoking Status Current Every Day [facility] 14:17:21 Marital Status Single Informatio n not available 04/24/2017 What Was The Date Of Your Most Recent Tobacco Screening? 05/23/2017 Information n ot available 04/20/2019 Sex: Unknown Functional Status Question Answer Note LastModified by [employer] Details LastModified Time What is your level of alcohol consumption? Occasional Information not available 04/24/2017 Mental Status None recorded. Family History Relationship Description Onset Age of this Age Resolved Age Notes LastModified by Organization Details LastModified Time Father No current problems or disability [email or web address] Not available 04/24 14:17:05 Mother No current problems or disability [email or web address] Not available 04/24 14:17:05 Medical History Condition Response Gout N Kidney Stones N Heart Arrhythmia N Emphysema N Erectile Dysfunction N Glaucoma N Depression N Pneumonia N Anesthesia Complications N Cancer Prostate N Anxiety Disorder N Obesity N Arthritis N Acid Reflux (GERD) N Cancer N Stroke N Radiation Therapy N High Cholesterol N High PSA N Liver Disease N Kidney Disease N Allergies/Hayfever N False Teeth N Chronic Obstructive Pulmonary Disease N Heart Conditions N Chemotherapy N Anemia N Urinary Problems N Heart Attack ([place]) N Ulcers N Mental Illness N Diabetes N Low Testosterone N Seizures/Epilepsy N Tuberculosis N AIDS/HIV N Congestive Heart Failure (CHF) N BPH N Urinary Tract Infection N Asthma N Sleep Apnea N Thyroid Disorder N Hepatitis N Heart Disease N Bronchitis N Hypertension N Past Encounters Encounter ID Performer Location Encounter Start Date Encounter Closed Date Diagnosis/Indication Diagnosis SNOMED-CT Code Diagnosis ICD10 Code Diagnosis IMO Codes Diagnosis Note [id number] MD [facility] [address] [address] 04/24/2017 13:18:57 05/01/2017 09:32:21 Male sterilization 184944750 Z30.2 [id number] GARY BANG MD [facility] [address] [place] [address] 05/23/2017 12:42:07 06/02/2017 10:45:26 Male sterilization 570846140 Z30.2 [id number] MD [facility] [address] [address] 10/28/2019 15:47:51 11/02/2019 09:02:42 Spermatocele 42474899 N43.40 Kidney stone 85339661 N2 0.0 Health Concerns Section Related Observation LastModified by Organization Detai ls LastModified Time None Recorded Concern Status LastModified by Organization Details LastModified Time None Recorded Advance Directives Directive None Recorded Payers Insurance Date Sequence Insurance Name Policy Number Policy Barney Covered Member ID Barney Member ID Guarantor Name 04/30/2017 1 [employer] (HMO) Clinton Londono [id number] Clinton Londono 11/02/2019 1 [employer] (POS) Clinton Londono [id number] Clinton Londono Notes Date Note Type Note Provider Name and Address Organization Details Recorded Time 04/24/2017 text/html 31-year-old male in the office for consultation and my initial evaluation for discussion of permanent sterilization by vasectomy. He has 4 children. He denies pain or trauma vaginal. Year. He denies troubles with urination. GARY BANG MD [facility] [place], [address], [facility] 04/30/2017 12:32:26 05/23/2017 text/html 31-year-old male in the office for vasectomy. MD Mony [address] [place], [address], [facility] 06/01/2017 21:16:07 10/28/2019 text/html 34-year-old male in the office for acute evaluation of left testicular nodule. He has history of vasectomy in 2018. He reports palpable lesion adjacent to the left testicle. Causes him no pain. He reports recent kidney stone in April 2019 that he was able to pass spontaneously. GARY BANG MD [address] [place] [address], [address], [facility] 10/29/2019 19:40:05
[2025-01-24 11:11] LABS: Testosterone,Free 9.9 pg/mL (8.7-25.1)
== END 2025-01-21 23:59 ==
LOC: LAB.DROPOF 01-24 10:38
PROVIDERS: PCP Nurse Practitioner Family; Visit Provider Nurse Practitioner Family
DX: N52.9 Male erectile dysfunction, unspecified (principal); I10 Essential (primary) hypertension; R33.9 Retention of urine, unspecified
CPT/HCPCS: 80053; 80061; 83735; 84153; 84154; 84402; 84403; 84443; 84630